=== PATIENT | male | born 1985 | race Caucasian/White ===

== ENCOUNTER 2020-11-11 02:26 | Emergency (ER) | payer OTHER ==
[~2020-11-11] VITALS: Ht 182.8 cm; Wt 99.8 kg
[2020-11-11] MEDS ORDERED: CLINDAMYCIN HC300 MG PO (07:34)
[2020-11-11] MEDS ORDERED: CEPHALEXIN500 M1 PO (07:34)
[2020-11-11] MEDS ORDERED: NAPROSYN500 MG PO (07:36)
== END 2020-11-11 08:24 | disposition home or self-care (01) ==
LOC: ED 02:26
DX: S81.011A Laceration without foreign body, right knee, initial encounter (principal); Z91.048 Other nonmedicinal substance allergy status; W17.81XA Fall down embankment (hill), initial encounter; Y93.89 Activity, other specified; Y92.89 Other specified places as the place of occurrence of the external cause; Y99.8 Other external cause status